=== PATIENT | male | born 1950 | race Caucasian/White ===

== ENCOUNTER 2016-09-30 21:10 | Emergency (ER) | payer MEDICARE ==
[2016-09-30 21:11] VITALS: BMI 35.6
[2016-09-30 21:28] VITALS: TEMP 99
--- NOTE | 2016-09-30 21:53 | DIRPT ---
CLINICAL DATA: chest pain and shortness of breath. 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 Smoker. Hypertension. Hyperlipidemia. EXAM: CHEST 2 VIEW COMPARISON: 09/13/2016 FINDINGS: Right Port-A-Cath terminates at the mid SVC. Midline trachea. Normal heart size. Atherosclerosis in the transverse aorta. No pleural effusion or pneumothorax. Left upper lobe lung mass, on the order of 6 x 6 cm. Grossly similar to the 09/13/2016 plain film. Surrounding airspace disease is improved to resolved. Patchy bibasilar atelectasis. IMPRESSION: Since 09/13/2016, similar left upper lobe lung mass. Improved surrounding infection or postobstructive pneumonitis. Bibasilar atelectasis. No superimposed acute process. Electronically Signed By: Geraldo Calvillo M.D. On: 09/30/2016 21:50
[2016-09-30 21:57] LABS: MPV 9.5 fL (7.4-10.4)
[2016-09-30 21:59] LABS: AUTOMATED BASOPHIL 0.5 % (0-2); AUTOMATED EOSINOPHIL 2.3 % (0-5); AUTOMATED LYMPH 16.6 % (17-44); AUTOMATED MONOCYTE 10.6 % (3-10); BLOOD UREA NITROGEN 24 MG/DL (9-20); CALC CORRECTED 10.7 MG/DL (8.4-10.2); CALCIUM 10.5 MG/DL (8.4-10.2); CALCULATED OSMOLALITY 274 MOs/Kg (270-290); CHLORIDE 99 mEq/L (98-107); GLUCOSE 112 mg/dL (70-99); SODIUM LEVEL 140 mEq/L (137-146); TOTAL PROTEIN 8.5 G/DL (6.3-8.2)
[2016-09-30 22:04] LABS: PARTIAL THROMB. TIME 26.6 SEC (22-35)
--- NOTE | 2016-09-30 22:43 | EDPRACDOC ---
- General Information Chief Complaint: Chest Pain Stated Complaint: CHEST PAIN LUNG CA Time Seen by Provider: 09/30/16 22:19 Mode of Arrival: Car Home Medications: Home Medications Aspirin [Ecotrin] 81 mg PO DAILY 05/31/14 Lisinopril/Hydrochlorothiazide [Lisinopril-Hctz 20-12.5 mg Tab] 1 tab PO DAILY 05/31/14 Oxycodone HCl [Roxicodone] 15 mg PO Q4H PRN 02/27/16 Morphine Sulfate [Morphine Sulfate ER] 30 mg PO BID 04/02/16 Senna Concentrate [Senokot] 1 tab PO BID 04/10/16 Duloxetine [Cymbalta] 30 mg PO DAILY 09/30/16 Allergies/Adverse Reactions: Allergies Allergy/AdvReac Type Severity Reaction Status Date / Time No Known Allergies Allergy Verified 05/11/16 18:24 - History of Present Illness Onset: Yesterday HPI: PT HERE WITH RIGHT AND LEFT CHEST WALL PAIN THAT IS CONTINUOUS FOR DAYS. DX WITH LARGE CELL NEUROENDOCRINE LUNG CA; SEE ONCOLOGY RECORDS. OFF ALL CHEMO. PT DEVELOPED VERG[place]ENS JEAN. PAIN IS WORSE WITH MOVEMENT. DENIES SHOB OR OTHER SXS Chest Pain Location: Reports: Right Chest, Left Chest Pain Radiation: Reports: None Symptoms Occur: Reports: Gradually PE Risk Factors: Reports: None Pain Description: Reports: Sharp Pain Severity: Mild Pain Worsens With: Reports: Movement, Position Pain Improves With: Reports: Position Associated Signs and Symptoms: Reports: None ED Past Medical History - History Reviewed Yes Nurses notes reviewed and agree except as marked - Patient Medical History Cardiac History: Reports: Coronary Artery Disease, Hypertension, Heart Attack (9 -10 YEARS), Cardiac Catheterization (SEE BELOW), Hypercholesterolemia Respiratory History: Reports: COPD Musculoskeletal History: Reports: Arthritis Psychological History: Reports: Anxiety. Denies: Depression Systemic History: Reports: Cancer (stage 4 left lung, mets to right hip) Surgical History: Reports: Cholecystectomy, Cardiac Catheterization (SEE BELOW) - Family Medical History Reports: Hypertension (MOM), Cancer (DAD,BROTHER, SISTER), Cardiac Disorders ( MOM). Denies: Diabetes, Stroke - Social Medical History Smoking Status: Heavy tobacco smoker (5 or more cigarettes/day or daily pipe/ cigar) EDM Review of Systems - Review of Systems ROS Negative Except as Marked: Yes All systems reviewed and were negative except as marked - Physical Exam Constitutional: Alert (Awake), No apparent distress Oriented to: Time, Person, Place Last recorded Vital Signs: Last Vital Signs Temp 99 F 09/30/16 21:21 Pulse 71 09/30/16 21:21 Resp 18 09/30/16 21:21 BP 155/89 09/30/16 21:21 Pulse Ox 93 09/30/16 21:21 Oxygen Pulse Oxygen Saturation 93 O2 Device Room Air Oxygen Flow Rate Fraction of Inspired Oxygen ( FIO2) - HEENT Head: Normal ( normocephalic) Eye Exam: Normal (PERRL, EOMI, Sclera white) Oropharynx: Normal (Pharynx:Moist without exudate,Gums-no swelling) ENT EAC: Normal TMJ: Normal Nose: No Symptoms Reported (septum midline) Neck: Normal (FROM, trachea at midline) - Respiratory/Cardiovascular Respiratory: Normal - CTA (BBS clear to auscultation without adventitious sounds ) Cardiovascular: Normal (RRR without murmur, gallop or rub) Respiratory/Cardiovascular Comment: CHEST WALL TENDERNESS BOTH RIGHT AND LEFT CHEST. WORSE ON RIGHT AT THE MID AXILLARY LINE LOWER COSTAL MARGINS - GI Auscultation: Normal (NABS) Palpation: Normal (Soft,No rebound or guarding, non distended) Tenderness: Non tender Marinelli's Sign: Negative - Musculoskeletal Back: Normal (Non-Tender) Extremities: Normal (Normal tone, Pulses 2+ No cyanosis or edema, FROM) - Integumentary Skin: Normal, Warm, Dry Lymphatics: Normal (no adenopathy) - Neurologic Memory Impaired: Normal Motor Function: Normal (Normal tone, Pulses 2+ No cyanosis or edema, FROM) Cranial Nerve: Normal (CN II-X11 intact sensation, strength 5/5) Cerebellar: Normal Mood Description: Normal Perception: Normal - Action Patient received Aspirin within last 24 hours?: No ASA given in the ED: No Patient received Beta Guy within last 24hrs: No - Results 09/30/16 21:25 09/30/16 21:25 WBC 10.0 xk/uL (3.8-10.8) 09/30/16 21:25 RBC 5.42 xM/uL (4.70-6.10) 09/30/16 21:25 Hgb 15.0 g/dL (14.0-18.0) 09/30/16 21:25 Hct 46.7 % (42-52) 09/30/16 21:25 MCV 86 fL (80-94) 09/30/16 21:25 MCH 27.6 pg (27-32) 09/30/16 21:25 MCHC 32.0 g/dl (33-36) L 09/30/16 21:25 RDW 16.5 % (11.5-14.5) H 09/30/16 21:25 Plt Count 194 xk/uL (130-400) 09/30/16 21:25 MPV 9.5 fL (7.4-10.4) 09/30/16 21:25 Neut % (Auto) 70.0 % (45-76) 09/30/16 21:25 Lymph % (Auto) 16.6 % (17-44) L 09/30/16 21:25 [facility] % (Auto) 10.6 % (3-10) H 09/30/16 21:25 Eos % (Auto) 2.3 % (0-5) 09/30/16 21:25 Baso % (Auto) 0.5 % (0-2) 09/30/16 21:25 Absolute Neuts (auto) 7.00 xk/uL (1.7-8.2) 09/30/16 21:25 Absolute Lymphs (auto) 1.60 xk/uL (0.65-4.75) 09/30/16 21:25 PT 10.3 SEC (9.2-11.2) 09/30/16 21:25 INR 1.0 09/30/16 21:25 APTT 26.6 SEC (22-35) 09/30/16 21:25 Sodium 140 mEq/L (137-146) 09/30/16 21:25 Potassium 4.5 mEq/L (3.5-5.1) 09/30/16 21:25 Chloride 99 mEq/L (98-107) 09/30/16 21:25 Carbon Dioxide 34 mMOL/L (22-33) H 09/30/16 21:25 Anion Gap 12 mEq/L (8-16) 09/30/16 21:25 BUN 24 MG/DL (9-20) H 09/30/16 21:25 Creatinine 1.00 MG/DL (0.66-1.25) 09/30/16 21:25 Estimated GFR (MDRD) > 60 mL/min (>=60) 09/30/16 21:25 Glucose 112 mg/dL (70-99) H 09/30/16 21:25 Calculated Osmolality 274 MOs/Kg (270-290) 09/30/16 21:25 Calcium 10.5 MG/DL (8.4-10.2) H 09/30/16 21:25 Corrected Calcium 10.7 MG/DL (8.4-10.2) H 09/30/16 21:25 Total Bilirubin 0.5 MG/DL (0.2-1.3) 09/30/16 21:25 AST 32 IU/L (17-59) 09/30/16 21:25 ALT 15 IU/L (21-72) L 09/30/16 21:25 Alkaline Phosphatase 98 IU/L (50-160) 09/30/16 21:25 Troponin I 0.01 ng/mL (<.04) 09/30/16 21:25 Fgo-F-Apqjvbiajvn Pept 373 pg/mL (0-900) 09/30/16 21:25 Total Protein 8.5 G/DL (6.3-8.2) H 09/30/16 21:25 Albumin 3.8 G/DL (3.5-5.0) 09/30/16 21:25 Lab Results 09/30/16 09/30/16 09/30/16 21:25 21:25 21:25 WBC 10.0 RBC 5.42 Hgb 15.0 Hct 46.7 MCV 86 MCH 27.6 MCHC 32.0 L RDW 16.5 H Plt Count 194 MPV 9.5 Neut % (Auto) 70.0 Lymph % (Auto) 16.[address] % (Auto) 10.6 H Eos % (Auto) 2.3 Baso % (Auto) 0.5 Absolute Neuts (auto) 7.00 Absolute Lymphs (auto) 1.60 PT 10.3 INR 1.0 APTT 26.6 Sodium 140 Potassium 4.5 Chloride 99 Carbon Dioxide 34 H Anion Gap 12 BUN 24 H Creatinine 1.00 Estimated GFR (MDRD) > 60 Glucose 112 H Calculated Osmolality 274 Calcium 10.5 H Corrected Calcium 10.7 H Total Bilirubin 0.5 AST 32 ALT 15 L Alkaline Phosphatase 98 Troponin I 0.01 Gbn-D-Sroquyrhtyg Pept 373 Total Protein 8.5 H Albumin 3.8 Laboratory Results - last 24 hr 09/30/16 09/30/16 09/30/16 21:25 21:25 21:25 WBC 10.0 RBC 5.42 Hgb 15.0 Hct 46.7 MCV 86 MCH 27.6 MCHC 32.0 L RDW 16.5 H Plt Count 194 MPV 9.5 Neut % (Auto) 70.0 Lymph % (Auto) 16.[address] [place] % (Auto) 10.6 H Eos % (Auto) 2.3 Baso % (Auto) 0.5 Absolute Neuts (auto) 7.00 Absolute Lymphs (auto) 1.60 PT 10.3 INR 1.0 APTT 26.6 Sodium 140 Potassium 4.5 Chloride 99 Carbon Dioxide 34 H Anion Gap 12 BUN 24 H Creatinine 1.00 Estimated GFR (MDRD) > 60 Glucose 112 H Calculated Osmolality 274 Calcium 10.5 H Corrected Calcium 10.7 H Total Bilirubin 0.5 AST 32 ALT 15 L Alkaline Phosphatase 98 Troponin I 0.01 Ino-Y-Ghnkwkmyojh Pept 373 Total Protein 8.5 H Albumin 3.8 Laboratory Results 09/30/16 21:25 09/30/16 21:25 - EKG EKG #1 [place]: Normal Rhythm: NSR Block: None Hypertrophy: None ST: Normal Decision Time to Discharge: 00:52 - Departure Yes I personally saw and evaluated the patient. Disposition: Home Condition: Good Final Diagnosis: CHEST WALL PAIN, KNOWN LARGE CELL CA OF LUNGS WITH METS Instructions: Chest Wall Pain (ED) Education/Counseling Given To: Patient, Family Member Education/Counseling Given Regarding: Diagnosis, Treatment, Prognosis Referrals: Diego Mcneal MD [Primary Care Provider] - One Week Prescriptions: No Action Lisinopril/Hydrochlorothiazide [Lisinopril-Hctz 20-12.5 mg Tab] 1 tab PO DAILY Aspirin [Ecotrin] 81 mg PO DAILY Oxycodone HCl [Roxicodone] 15 mg PO Q4H PRN PRN Reason: Pain Morphine Sulfate [Morphine Sulfate ER] 30 mg PO BID Senna Concentrate [Senokot] 1 tab PO BID Duloxetine [Cymbalta] 30 mg PO DAILY
[2016-09-30] MEDS ORDERED: Pharmacy Review for Metformin - IV Contrast Given SCH (23:00)
--- NOTE | 2016-09-30 23:47 | DIRPT ---
CLINICAL DATA: Chest pain radiates to the back. Symptoms for 1 week. Known lung cancer, stage IV. EXAM: CT ANGIOGRAPHY CHEST WITH CONTRAST TECHNIQUE: Multidetector CT imaging of the chest was performed using the standard protocol during bolus administration of intravenous contrast. Multiplanar CT image reconstructions and MIPs were obtained to evaluate the vascular anatomy. COMPARISON: CT CS 02/27/2016. FINDINGS: Mediastinum: No filling defects are noted within the pulmonary arterial tree to suggest pulmonary emboli. Cardiomegaly. Coronary stents. No pericardial fluid, thickening or calcification. No acute abnormality of the thoracic aorta or other great vessels of the mediastinum. LEFT hilar adenopathy and AP window adenopathy is increased from priors. The esophagus is normal in appearance. Lungs/Pleura: LEFT upper lobe mass is increased from priors, estimated 5.7 x 6.0 cm. LEFT upper lobe bronchus is obstructed by tumor and/or adenopathy, with resultant postobstructive atelectasis or consolidation. No pleural effusion. Upper Abdomen: Visualized portions of the upper abdomen are unremarkable. Musculoskeletal: Metastatic deposits are seen to the T7, T9, and T11 vertebrae. No definite epidural tumor. No pathologic compression deformity. No definite posterior element involvement. Review of the MIP images confirms the above findings. IMPRESSION: Progressive tumor, LEFT upper lobe, with regional adenopathy, obstruction of the LEFT upper lobe bronchus, and postobstructive atelectasis or pneumonia. Interval development of metastatic disease to T7, T9, and T11. No definite epidural tumor or pathologic fracture. No evidence for pulmonary emboli. Electronically Signed By: Adam Ramirez M.D. On: 09/30/2016 23:45
[2016-10-01] MEDS ORDERED: KETOROLAC TROMETH 30 MG/ML VIAL IV ONE (00:27)
[2016-10-01 01:24] VITALS: BP 147/70; PULSE 70
== END 2016-10-01 01:30 | disposition home or self-care (01) ==
LOC: ED 21:10
DX: R07.89 Other chest pain (principal); C34.92 Malignant neoplasm of unspecified part of left bronchus or lung; C79.51 Secondary malignant neoplasm of bone; L51.1 Stevens-Johnson syndrome; I25.10 Atherosclerotic heart disease of native coronary artery without angina pectoris; I10 Essential (primary) hypertension; E78.00 Pure hypercholesterolemia, unspecified; J44.9 Chronic obstructive pulmonary disease, unspecified; F41.9 Anxiety disorder, unspecified; F17.200 Nicotine dependence, unspecified, uncomplicated; Z79.899 Other long term (current) drug therapy
CPT/HCPCS: 36415; 71020; 71275; 80053; 83880; 84484; 85025; 85610; 85730; 93005; 96374; 99283; A9698; J1885